=== PATIENT | male | born 1945 | race Caucasian/White ===

== ENCOUNTER 2018-01-20 19:00 | Inpatient (IN) ==
--- NOTE | 2018-01-20 19:38 | ED ---
HPI General Chief complaint: Weakness Stated complaint: poss sepsis Time Seen by Provider: 01/20/18 19:29 History of Present Illness HPI narrative: 72-year-old male with a history of hypertension, hyperlipidemia, atrial fibrillation anticoagulated on Coumadin is brought to the emergency department by EMS for evaluation of weakness and UTI. The patient states that he was diagnosed with a urinary tract infection 5 days ago and has been on Bactrim as prescribed by his physician. States that his symptoms have worsened. He complains of burning with urination, painful urination, suprapubic pain. States that today he started having nausea with dry heaves and generalized weakness and lightheadedness. Denies any fever, chills, vomiting, diarrhea, constipation, black stool, bloody stool, chest pain, shortness of breath, cough or cold symptoms. PCP Dr. Ruiz. Related Data Home Medications Medication Instructions Recorded Confirmed aspirin 81 mg PO DAILY 01/20/18 01/20/18 carvedilol See Label Instructions .ROUTE 01/20/18 01/20/18 .COMPLEX digoxin See Label Instructions .ROUTE 01/20/18 01/20/18 .COMPLEX dronedarone See Label Instructions .ROUTE 01/20/18 01/20/18 .COMPLEX furosemide See Label Instructions .ROUTE 01/20/18 01/20/18 .COMPLEX lisinopril See Label Instructions .ROUTE 01/20/18 01/20/18 .COMPLEX simvastatin See Label Instructions .ROUTE 01/20/18 01/20/18 .COMPLEX sulfamethoxazole-trimethoprim See Label Instructions .ROUTE 01/20/18 01/20/18 [Bactrim] .COMPLEX warfarin See Label Instructions .ROUTE 01/20/18 01/20/18 .COMPLEX Allergies Allergy/AdvReac Type Severity Reaction Status Date / Time No Known Allergies Allergy Unverified 01/20/18 19:19 Review of Systems ROS: all other systems reviewed are negative [facility] Medical History Medical History Atrial fibrillation (Acute) Hypertension (Acute) Surgical History Surgical History H/O aortic valve replacement (Acute) H/O hernia repair (Acute) H/O mitral valve replacement (Acute) Social History Social History Smoking Status: Never smoker How Often Do You Have a Drink Containing Alcohol: Never Recent Travel in [facility] [[email or web address]] within the Last 8 Weeks: No Recent Out of Country Travel within the Last 8 Weeks: No Immunization History Tetanus Immunization: Unsure Hx Influenza Vaccine This Season: No Exam Narrative Exam Narrative: GENERAL: Well-nourished and well-developed pleasant patient in no acute distress who is nontoxic appearing. SKIN: Warm and dry. HEAD: Normocephalic and atraumatic. EYES: No injection, drainage, or hyphema noted. PERRLA. EOMI. ENT: No nasal drainage noted. Oropharynx is clear. NECK: Supple and the trachea is midline. CARDIOVASCULAR: Regular rate and rhythm. RESPIRATORY: Breath sounds are equal bilaterally with no accessory muscle use, wheezing, rhonchi, or crackles. GASTROINTESTINAL: Mild suprapubic tenderness to palpation. No rebound tenderness or guarding. Abdomen is soft and nondistended. MUSCULOSKELETAL: No obvious deformities, swelling, cyanosis, or ecchymosis is present throughout the upper and lower extremities. Patient has full range of motion without any signs of neurovascular compromise. Distal pulses are 2+ throughout. NEUROLOGICAL: Awake, alert, and oriented. Normal speech and gait. Cranial nerves are grossly intact. Course Initial Documented Vital Signs Temperature 99.6 F 01/20/18 19:14 Pulse Rate 70 01/20/18 19:14 Respiratory Rate 16 01/20/18 19:14 Blood Pressure 146/70 H 01/20/18 19:14 Pulse Oximetry 97 01/20/18 19:14 Last Documented Vital Signs Temperature 99.6 F 01/20/18 19:14 Pulse Rate 60 01/20/18 23:14 Respiratory Rate 16 01/20/18 23:14 Blood Pressure 147/72 H 01/20/18 23:14 Pulse Oximetry 95 01/20/18 23:14 Medical Decision Making ARVIN Attestation ARVIN supervised visit: Yes Attestation: discussed plan and dispo with KRISTIN Lora admsandro [facility] Narrative Medical decision making narrative: 72-year-old male is brought to the emergency department by EMS for evaluation of weakness and UTI. Patient is afebrile, vital signs are stable. Physical examination reveals suprapubic tenderness to palpation, otherwise unremarkable. IV access is obtained, labs been drawn and sent. Patient is placed on cardiac telemetry and pulse oximetry monitoring. Patient is administered 500 cc IV bolus of fluids and Rocephin 1 g IV. Workup reveals elevated white blood cell count and urinary tract infection. Patient has failed outpatient therapy for treatment of UTI therefore will be admitted for IV antibiotics. I spoke with Dr. Rodriguez who agrees to accept the patient to her service. Medical Screen Exam Complete: Yes Emergency Medical Condition: Yes Differential Diagnosis Differential Diagnosis: Sepsis versus UTI versus dehydration versus electrolyte abnormality Lab Data Result diagrams: 01/20/18 19:50 01/20/18 19:50 Lab Results 01/20/18 01/20/18 01/20/18 Range/Units 19:50 19:50 19:50 WBC 15.3 H (4.0-11.0) th/mm3 RBC 4.23 L (4.50-5.90) mil/mm3 Hgb 13.5 (13.0-17.0) gm/dL Hct 39.0 (39.0-51.0) % MCV 92.2 (80.0-100.0) fL MCH 31.8 (27.0-34.0) pg MCHC 34.5 (32.0-36.0) % RDW 13.5 (11.6-17.2) % Plt Count 206 (150-450) th/mm3 MPV 9.6 (7.0-11.0) fL Neut % (Auto) 79.3 H (16.0-70.0) % Lymph % (Auto) 11.3 (9.0-44.0) % Nobles % (Auto) 7.3 (0.0-8.0) % Eos % (Auto) 1.5 (0.0-4.0) % Baso % (Auto) 0.6 (0.0-2.0) % Neut # (Auto) 12.1 H (1.8-7.7) th/mm3 Lymph # (Auto) 1.7 (1.0-4.8) th/mm3 Nobles # (Auto) 1.1 H (0.0-0.9) th/mm3 Eos # (Auto) 0.2 (0.0-0.4) th/mm3 Baso # (Auto) 0.1 (0.0-0.2) th/mm3 WBC Differential . Differential Comment Auto diff final PT (9.8-11.6) sec INR Ratio Sodium 133 L (136-145) meq/L Potassium 3.8 (3.5-5.1) meq/L Chloride 97 L (98-107) meq/L Carbon Dioxide 23.9 (21.0-32.0) meq/L Anion Gap 12 (5-15) meq/L BUN 10 (7-18) mg/dL Creatinine 0.93 (0.60-1.30) mg/dL Estimated GFR 79 L (>89) mL/min Random Glucose 145 H (74-106) mg/dL Lactic Acid 1.4 (0.4-2.0) mmol/L Calcium 9.0 (8.5-10.1) mg/dL Total Bilirubin 0.9 (0.2-1.0) mg/dL AST 50 H (15-37) U/L ALT 61 (12-78) U/L Alkaline Phosphatase 88 (45-117) U/L Troponin I 0.04 (0.02-0.05) ng/mL Total Protein 7.5 (6.4-8.2) g/dL Albumin 3.7 (3.4-5.0) g/dL Lipase 167 (73-393) U/L Urine Color (Yellw/Straw) Urine Clarity (Clear) Urine pH (5.0-8.5) Ur Specific [place] (1.002-1.035) Urine Protein (Neg-Trace) mg/dL Urine Glucose (UA) (Negative) mg/dL Urine Ketones (Negative) mg/dL Urine Occult Blood (Negative) Urine Nitrate (Negative) Urine Bilirubin (Negative) Urine Urobilinogen (Less than 2) mg/dL Ur Leukocyte Esterase (Negative) Urine RBC (0-3) /hpf Urine WBC (0-5) /hpf Urine Bacteria (None) /hpf Urine Mucus (Occasional) /lpf Micro UA Comment Ur Microscopic Review Urine Culture Comments 01/20/18 01/20/18 Range/Units 19:50 21:45 WBC (4.0-11.0) th/mm3 RBC (4.50-5.90) mil/mm3 Hgb (13.0-17.0) gm/dL Hct (39.0-51.0) % MCV (80.0-100.0) fL MCH (27.0-34.0) pg MCHC (32.0-36.0) % RDW (11.6-17.2) % Plt Count (150-450) th/mm3 MPV (7.0-11.0) fL Neut % (Auto) (16.0-70.0) % Lymph % (Auto) (9.0-44.0) % Nobles % (Auto) (0.0-8.0) % Eos % (Auto) (0.0-4.0) % Baso % (Auto) (0.0-2.0) % Neut # (Auto) (1.8-7.7) th/mm3 Lymph # (Auto) (1.0-4.8) th/mm3 [place]les # (Auto) (0.0-0.9) th/mm3 Eos # (Auto) (0.0-0.4) th/mm3 Baso # (Auto) (0.0-0.2) th/mm3 WBC Differential Differential Comment PT 16.5 H (9.8-11.6) sec INR 1.6 Ratio Sodium (136-145) meq/L Potassium (3.5-5.1) meq/L Chloride (98-107) meq/L Carbon Dioxide (21.0-32.0) meq/L Anion Gap (5-15) meq/L BUN (7-18) mg/dL Creatinine (0.60-1.30) mg/dL Estimated GFR (>89) mL/min Random Glucose (74-106) mg/dL Lactic Acid (0.4-2.0) mmol/L Calcium (8.5-10.1) mg/dL Total Bilirubin (0.2-1.0) mg/dL AST (15-37) U/L ALT (12-78) U/L Alkaline Phosphatase (45-117) U/L Troponin I (0.02-0.05) ng/mL Total Protein (6.4-8.2) g/dL Albumin (3.4-5.0) g/dL Lipase (73-393) U/L Urine Color Yellow (Yellw/Straw) Urine Clarity Hazy H (Clear) Urine pH 7.0 (5.0-8.5) Ur Specific [place] 1.012 (1.002-1.035) Urine Protein Negative (Neg-Trace) mg/dL Urine Glucose (UA) Negative (Negative) mg/dL Urine Ketones Negative (Negative) mg/dL Urine Occult Blood Negative (Negative) Urine Nitrate Negative (Negative) Urine Bilirubin Negative (Negative) Urine Urobilinogen Less than 2 (Less than 2) mg/dL Ur Leukocyte Esterase Large H (Negative) Urine RBC 2 (0-3) /hpf Urine WBC 62 H (0-5) /hpf Urine Bacteria Rare H (None) /hpf Urine Mucus Few H (Occasional) /lpf Micro UA Comment Culture indicated Ur Microscopic Review Not Reportable Urine Culture Comments Culture indicated Imaging Data Radiologist's impression: Chest X-Ray 01/20/18 19:34 CONCLUSION: Cardiomegaly without radiographic evidence of congestive failure. No infiltrates seen. Discharge Plan Discharge Disposition Patient Disposition: 30 Still Patient Discharge Condition Condition: Stable Discharge Details Diagnosis: Acute UTI, Failure of outpatient treatment Physicians Team ED Provider: Jake Franco ED Midlevel Provider: Maddie Salinas Primary Care Provider: Merry Jensen Attending Provider: Gela Chen Status ED Status: Admitted Patient
--- NOTE | 2018-01-20 19:52 | XR ---
EXAM DATE: 01/20/2018 7:34 PM EDT AGE/SEX: 72 years / Male INDICATIONS: Fever with dizziness. CLINICAL DATA: This is the patient's initial encounter. Patient reports that signs and symptoms have been present for 2 days and indicates a pain score of 0/10. MEDICAL/SURGICAL HISTORY: Hypertension. . Valve replacement. COMPARISON: No prior exams available for comparison. FINDINGS: The lungs are symmetrically aerated and clear. The central bronchopulmonary markings are well delinea ana. There is moderate cardiomegaly and evidence of prior median sternotomy and aortic and mitral morena ve replacements. Both hemidiaphragms are well delineated and there is no evidence of pleural effusion . CONCLUSION: Cardiomegaly without radiographic evidence of congestive failure. No infiltrates seen. Electronically signed by: Johnathon Montez MD 01/20/2018 7:50 PM EDT
[2018-01-20] MEDS ORDERED: Sodium Chlor 0.9% Inj 500 ML IV.SIG SCH ×2 (20:00→22:00)
[2018-01-20 20:09] LABS: Baso # (Auto) 0.1 th/mm3 (0.0-0.2); Baso % (Auto) 0.6 % (0.0-2.0); Eos # (Auto) 0.2 th/mm3 (0.0-0.4); Eos % (Auto) 1.5 % (0.0-4.0); Hemoglobin 13.5 gm/dL (13.0-17.0); Lymph # (Auto) 1.7 th/mm3 (1.0-4.8); Lymph % (Auto) 11.3 % (9.0-44.0); Mean Corpuscular HGB Conc 34.5 % (32.0-36.0); Mean Corpuscular Hemoglobin 31.8 pg (27.0-34.0); Mean Corpuscular Volume 92.2 fL (80.0-100.0); Mean Platelet Volume 9.6 fL (7.0-11.0); Mono # (Auto) 1.1 th/mm3 (0.0-0.9); Mono % (Auto) 7.3 % (0.0-8.0); Neut # (Auto) 12.1 th/mm3 (1.8-7.7); Neut % (Auto) 79.3 % (16.0-70.0); Platelet Count 206 th/mm3 (150-450); Red Blood Count 4.23 mil/mm3 (4.50-5.90); Red Cell Distribution Width 13.5 % (11.6-17.2); White Blood Count 15.3 th/mm3 (4.0-11.0)
[2018-01-20 20:19] LABS: INR 1.6 Ratio; Prothrombin Time 16.5 sec (9.8-11.6)
[2018-01-20 20:25] LABS: Albumin 3.7 g/dL (3.4-5.0); Anion Gap 12 meq/L (5-15); Aspartate Aminotransferase 50 U/L (15-37); Blood Urea Nitrogen 10 mg/dL (7-18); Carbon Dioxide 23.9 meq/L (21.0-32.0); Chloride 97 meq/L (98-107); Glomerular Filtration Rate 79 mL/min (>89); Glucose,Random 145 mg/dL (74-106); Lipase 167 U/L (73-393); Potassium 3.8 meq/L (3.5-5.1); Sodium 133 meq/L (136-145)
[2018-01-20 20:31] LABS: Alanine Aminotransferase 61 U/L (12-78); Alkaline Phosphatase 88 U/L (45-117); Total Protein 7.5 g/dL (6.4-8.2); Troponin I 0.04 ng/mL (0.02-0.05)
--- NOTE | 2018-01-20 21:27 | ECG ---
Date Performed: 01/20/2018 Time Performed: 19:46:44 PTAGE: 72 years EKG: ATRIAL FIBRILLATION NONSPECIFIC ST & T-WAVE ABNORMALITY ABNORMAL RHYTHM ECG NO PREVIOUS TRACING DOCTOR: Woodrow Gupta Interpretating Date/Time 01/20/2018 21:27:05
[2018-01-20 22:05] LABS: Bacteria,Urine Rare /hpf; Bilirubin,Urine Negative (Negative); Clarity,Urine Hazy (Clear); Color,Urine Yellow (Yellw/Straw); Glucose,Urine (UA) Negative (Negative); Leukocyte Esterase,Urine Large (Negative); Mucus,Urine Few /lpf (Occasional); Nitrite,Urine Negative (Negative); Specific Gravity,Urine 1.012 (1.002-1.035)
[2018-01-20] MEDS ORDERED: Acetaminophen 325 MG Tablet PO PRN (23:40)
[2018-01-20] MEDS ORDERED: Bisacodyl 10 MG Supp RECTAL PRN (23:40)
--- NOTE | 2018-01-20 23:41 | P.HPIM ---
History of Present Illness Primary Care Physician: Merry Jensen Inpatient Certification: I certify that the inpatient services were ordered in accordance with Medicare regulations governing the order. This includes certification that hospital inpatient services are reasonable and necessary and in the case of services not specified as inpatient-only under 42 CFR 419.22(n), that they are appropriately provided as inpatient services in accordance to with the 2-midnight benchmark under 43 CFR 412.3(e) Estimated Total Length of Stay (Days): 2 Plans for Post Hospital Care: Not yet determined PMFSH - History History Provided By: Patient - Medical History Medical History: Medical History (Last Updated 01/20/18 @ 19:22 by Nadine Mccann) Atrial fibrillation Hypertension - Surgical History Surgical History: Surgical History (Last Updated 01/20/18 @ 19:22 by Nadine Mccann) H/O aortic valve replacement H/O hernia repair H/O mitral valve replacement - Tobacco History Smoking Status: Never smoker - Alcohol History How Often Do You Have a Drink Containing Alcohol: Never - Travel History Recent Travel in the [place] Within the Last 8 Weeks: No Recent Travel Out of the Country Within the Last 8 Weeks: No - Immunization History Tetanus Immunization: Unsure Hx Influenza Vaccine This Season: No Medications and Allergies Active Medications: Active Medications Sodium Chloride (Ns Inj) 500 mls @ 0 mls/hr IV.SIG BOLUS BECCA Last Infusion: 01/20/18 20:55 Dose: Infused Sodium Chloride (Ns Inj) 500 mls @ 0 mls/hr IV.SIG BOLUS BECCA Last Infusion: 01/20/18 22:17 Dose: Infused Allergies Allergy/AdvReac Type Severity Reaction Status Date / Time No Known Allergies Allergy Unverified 01/20/18 19:19 Home Medications Medication Instructions Recorded Confirmed Type aspirin 81 mg PO DAILY 01/20/18 01/20/18 History carvedilol See Label Instructions .ROUTE 01/20/18 01/20/18 History .COMPLEX digoxin See Label Instructions .ROUTE 01/20/18 01/20/18 History .COMPLEX dronedarone See Label Instructions .ROUTE 01/20/18 01/20/18 History .COMPLEX furosemide See Label Instructions .ROUTE 01/20/18 01/20/18 History .COMPLEX lisinopril See Label Instructions .ROUTE 01/20/18 01/20/18 History .COMPLEX simvastatin See Label Instructions .ROUTE 01/20/18 01/20/18 History .COMPLEX sulfamethoxazole-trimethoprim See Label Instructions .ROUTE 01/20/18 01/20/18 History [Bactrim] .COMPLEX warfarin See Label Instructions .ROUTE 01/20/18 01/20/18 History .COMPLEX Exam Vital signs: Vital Signs 01/20/18 19:14 01/20/18 19:15 01/20/18 23:14 Temperature 99.6 F Pulse Rate 70 60 Respiratory Rate 16 16 Blood Pressure 146/70 H 147/72 H Pulse Oximetry 97 96 95 Intake & Output 01/20/18 01/20/18 01/21/18 06:59 18:59 06:59 Intake Total 1100 / 1100 Balance 1100 / 1100 Weight 89.358 kg Intake: IV 1100 / 1100 NS Inj 500 ML @ Wide Open IV. 1000 / 1000 SIG BOLUS BECCA Rx#:[id number] Rocephin Inj 1,000 MG In NS Inj 100 / 100 100 ML @ 200 mls/hr IV.SIG ONCE ONE Rx#:[id number] Results - Labs CBC & Chem 7: 01/20/18 19:50 01/20/18 19:50 Labs: Short CBC 01/20/18 Range/Units 19:50 WBC 15.3 H (4.0-11.0) th/mm3 Hgb 13.5 (13.0-17.0) gm/dL Hct 39.0 (39.0-51.0) % Plt Count 206 (150-450) th/mm3 BMP 01/20/18 19:50 Sodium 133 L Potassium 3.8 Chloride 97 L Carbon Dioxide 23.9 BUN 10 Creatinine 0.93 Calcium 9.0 Cardiac Enzymes 01/20/18 Range/Units 19:50 Troponin I 0.04 (0.02-0.05) ng/mL Liver Function 01/20/18 Range/Units 19:50 Total Bilirubin 0.9 (0.2-1.0) mg/dL AST 50 H (15-37) U/L ALT 61 (12-78) U/L Alkaline Phosphatase 88 (45-117) U/L Albumin 3.7 (3.4-5.0) g/dL Urine 01/20/18 Range/Units 21:45 Urine Color Yellow (Yellw/Straw) Urine Clarity Hazy H (Clear) Urine pH 7.0 (5.0-8.5) Ur Specific [place] 1.012 (1.002-1.035) Urine Protein Negative (Neg-Trace) mg/dL Urine Glucose (UA) Negative (Negative) mg/dL - Imaging Impressions Chest X-Ray 01/20/18 19:34 CONCLUSION: Cardiomegaly without radiographic evidence of congestive failure. No infiltrates seen. Caprini VTE Risk Assessment Caprini Risk Assessment Model: Point Value = 1 Point Value = 2 Point Value = 3 Point Value = 5 Age 41-60 Minor surgery BMI > 25 kg/m2 Swollen legs Varicose veins or History of unexplained or recurrent spontaneous Oral contraceptives or hormone replacement Sepsis (< 1 month) Serious lung disease, including pneumonia (< 1 month) Abnormal pulmonary function Acute myocardial infarction Congestive heart failure (< 1 month) History of inflammatory bowel disease Medical patient at bed rest Age 61-74 Arthroscopic surgery Major open surgery (> 45 min) Laparoscopic surgery (> 45 min) Malignancy Confined to bed (> 72 hours) Immobilizing plaster cast Central venous access Age >= 75 History of VTE Family history of VTE Factor V Leiden Prothrombin [id number] Lupus anticoagulant Anticardiolipin antibodies Elevated serum homocysteine Heparin-induced thrombocytopenia Other congenital or acquired thrombophilia Stroke (< 1 month) Elective arthroplasty Hip, pelvis, or leg fracture Acute spinal cord injury (< 1 month) Prophylaxis Regimen: Total Risk Factor Score Risk Level Prophylaxis Regimen 0-1 Low Early ambulation 2 Moderate Order ONE of the following: *Sequential Compression Device (SCD) *Heparin 5000 units SQ BID 3-4 Higher Order ONE of the following medications: *Heparin 5000 units SQ TID *Enoxaparin/Lovenox 40 mg SQ daily (WT < 150 kg, CrCl > 30 mL/min) *Enoxaparin/Lovenox 30 mg SQ daily (WT < 150 kg, CrCl > 10-29 mL/min) *Enoxaparin/Lovenox 30 mg SQ BID (WT < 150 kg, CrCl > 30 mL/min) AND/OR *Sequential Compression Device (SCD) 5 or more Highest Order ONE of the following medications: *Heparin 5000 units SQ TID (Preferred with Epidurals) *Enoxaparin/Lovenox 40 mg SQ daily (WT < 150 kg, CrCl > 30 mL/min) *Enoxaparin/Lovenox 30 mg SQ daily (WT < 150 kg, CrCl > 10-29 mL/min) *Enoxaparin/Lovenox 30 mg SQ BID (WT < 150 kg, CrCl > 30 mL/min) AND *Sequential Compression Device (SCD)
[2018-01-21] MEDS: Sod Chloride 0.9% Inj 1,000 ML IV.CONT SCH ×3 (00:08→19:58)
--- NOTE | 2018-01-21 01:39 | P.HPIM ---
History of Present Illness Primary Care Physician: Merry Jensen History of Present Illness: 72-year-old male with a history of hypertension, hyperlipidemia, atrial fibrillation anticoagulated on Coumadin is brought to the emergency department by EMS for evaluation of weakness and UTI. The patient states that he was diagnosed with a urinary tract infection 5 days ago and was Bactrim as prescribed. States that his symptoms have worsened. He complains of burning with urination, painful urination, suprapubic pain and frequency. He states today he just felt week, denies any fever or chills. Patient is a poor historian when it comes to medications and dosages that he takes. Patient was called and she will bring in pill bottles in AM. Inpatient Certification: I certify that the inpatient services were ordered in accordance with Medicare regulations governing the order. This includes certification that hospital inpatient services are reasonable and necessary and in the case of services not specified as inpatient-only under 42 CFR 419.22(n), that they are appropriately provided as inpatient services in accordance to with the 2-midnight benchmark under 43 CFR 412.3(e) Estimated Total Length of Stay (Days): 2 Plans for Post Hospital Care: Not yet determined Review of Systems All other systems reviewed negative except as stated [facility] - History History Provided By: Patient - Medical History Medical History: Medical History (Last Updated 01/21/18 @ 02:40 by DENICE Medley) Atrial fibrillation HLD (hyperlipidemia) Hypertension - Surgical History Surgical History: Surgical History (Last Updated 01/20/18 @ 19:22 by Nadine Mccann) H/O aortic valve replacement H/O hernia repair H/O mitral valve replacement - Tobacco History Smoking Status: Never smoker - Alcohol History How Often Do You Have a Drink Containing Alcohol: Never - Travel History Recent Travel in the [place] Within the Last 8 Weeks: No Recent Travel Out of the Country Within the Last 8 Weeks: No - Immunization History Tetanus Immunization: Unsure Hx Influenza Vaccine This Season: No Medications and Allergies Active Medications: Active Medications Acetaminophen (Tylenol) 650 mg PO Q4H PRN PRN Reason: Temp > 100.4 Al Hydroxide/Mg Hydroxide (Milk Of Magnesia Liq) 30 ml PO Q12H PRN PRN Reason: Mild Constipation Bisacodyl (Dulcolax Supp) 10 mg RECTAL DAILY PRN PRN Reason: SEVERE CONSITIPATION Enalaprilat (Vasotec Inj) 1.25 mg IV.PUSH Q6H PRN PRN Reason: SBP> OR = 180, DBP> OR = 100 Sodium Chloride (Ns Inj) 500 mls @ 0 mls/hr IV.SIG BOLUS BECCA Last Infusion: 01/20/18 20:55 Dose: Infused Sodium Chloride (Ns Inj) 500 mls @ 0 mls/hr IV.SIG BOLUS BECCA Last Infusion: 01/20/18 22:17 Dose: Infused Ceftriaxone Sodium 1,000 mg/ (Sodium Chloride) 100 mls @ 200 mls/hr IV.SIG Q24H BECCA Sodium Chloride (Ns Inj) 1,000 mls @ 100 mls/hr IV.CONT .Q10H BECCA Last Admin: 01/21/18 00:08 Dose: 100 mls/hr Lactulose (Lactulose Liq) 30 ml PO DAILY PRN PRN Reason: SEVERE CONSITIPATION Ondansetron HCl (Zofran Inj) 4 mg IV.PUSH Q6H PRN PRN Reason: NAUSEA OR VOMITING Senna/Docusate Sodium (Alondra-Colace) 1 tab PO BID BECCA Sennosides (Senokot) 17.2 mg PO Q12H PRN PRN Reason: Moderate Constipation Allergies Allergy/AdvReac Type Severity Reaction Status Date / Time No Known Allergies Allergy Unverified 01/20/18 19:19 Home Medications Medication Instructions Recorded Confirmed Type aspirin 81 mg PO DAILY 01/20/18 01/20/18 History carvedilol See Label Instructions .ROUTE 01/20/18 01/20/18 History .COMPLEX digoxin See Label Instructions .ROUTE 01/20/18 01/20/18 History .COMPLEX dronedarone See Label Instructions .ROUTE 01/20/18 01/20/18 History .COMPLEX furosemide See Label Instructions .ROUTE 01/20/18 01/20/18 History .COMPLEX lisinopril See Label Instructions .ROUTE 01/20/18 01/20/18 History .COMPLEX simvastatin See Label Instructions .ROUTE 01/20/18 01/20/18 History .COMPLEX sulfamethoxazole-trimethoprim See Label Instructions .ROUTE 01/20/18 01/20/18 History [Bactrim] .COMPLEX warfarin See Label Instructions .ROUTE 01/20/18 01/20/18 History .COMPLEX Multi Vitamin 01/21/18 History dronedarone 400 mg PO BID 01/21/18 01/21/18 History furosemide 20 mg PO DAILY 01/21/18 01/21/18 History hydrocodone-acetaminophen 2 tab PO Q8H PRN 01/21/18 01/21/18 History lisinopril 5 mg PO DAILY 01/21/18 01/21/18 History lisinopril 40 mg PO DAILY 01/21/18 01/21/18 History oxymetazoline [Afrin 2 spray INTRANASAL Q12H 01/21/18 01/21/18 History (oxymetazoline)] warfarin 7.5 mg PO DAILY 01/21/18 01/21/18 History Exam Vital signs: Vital Signs 01/20/18 19:14 01/20/18 19:15 01/20/18 23:14 Temperature 99.6 F Pulse Rate 70 60 Respiratory Rate 16 16 Blood Pressure 146/70 H 147/72 H Pulse Oximetry 97 96 95 01/21/18 00:00 Temperature 97.7 F Pulse Rate 65 Respiratory Rate 17 Blood Pressure 182/89 H Pulse Oximetry 95 Intake & Output 01/20/18 01/20/18 01/21/18 06:59 18:59 06:59 Intake Total 1100 / 1100 Balance 1100 / 1100 Weight 89.358 kg Intake: IV 1100 / 1100 NS Inj 500 ML @ Wide Open IV. 1000 / 1000 SIG BOLUS BECCA Rx#:[id number] Rocephin Inj 1,000 MG In NS Inj 100 / 100 100 ML @ 200 mls/hr IV.SIG ONCE ONE Rx#:[id number] Narrative: GENERAL: This is a well-nourished, well-developed patient, in no apparent distress. SKIN: Warm, dry, intact, no ecchymosis or open lesions EYES: Pupils equal round and reactive, no scleral edema or drainage CARDIOVASCULAR: Regular rate and rhythm without murmurs, gallops, or rubs. RESPIRATORY: Clear to auscultation. Breath sounds equal bilaterally. No wheezes , rales, or rhonchi. GASTROINTESTINAL: Abdomen soft, non-tender, nondistended. Normal active bowel sounds MUSCULOSKELETAL: Extremities without clubbing, cyanosis, or edema. NEURO: Alert & Oriented x4 to person, place, time, situation. Moves all ext x4 Results - Labs CBC & Chem 7: 01/20/18 19:50 01/20/18 19:50 Labs: Short CBC 01/20/18 Range/Units 19:50 WBC 15.3 H (4.0-11.0) th/mm3 Hgb 13.5 (13.0-17.0) gm/dL Hct 39.0 (39.0-51.0) % Plt Count 206 (150-450) th/mm3 BMP 01/20/18 19:50 Sodium 133 L Potassium 3.8 Chloride 97 L Carbon Dioxide 23.9 BUN 10 Creatinine 0.93 Calcium 9.0 Cardiac Enzymes 01/20/18 Range/Units 19:50 Troponin I 0.04 (0.02-0.05) ng/mL Liver Function 01/20/18 Range/Units 19:50 Total Bilirubin 0.9 (0.2-1.0) mg/dL AST 50 H (15-37) U/L ALT 61 (12-78) U/L Alkaline Phosphatase 88 (45-117) U/L Albumin 3.7 (3.4-5.0) g/dL Urine 01/20/18 Range/Units 21:45 Urine Color Yellow (Yellw/Straw) Urine Clarity Hazy H (Clear) Urine pH 7.0 (5.0-8.5) Ur Specific [place] 1.012 (1.002-1.035) Urine Protein Negative (Neg-Trace) mg/dL Urine Glucose (UA) Negative (Negative) mg/dL - Imaging Impressions Chest X-Ray 01/20/18 19:34 CONCLUSION: Cardiomegaly without radiographic evidence of congestive failure. No infiltrates seen. Caprini VTE Risk Assessment Caprini VTE Risk Assessment: Moderate/High Risk (score >= 2) Caprini Risk Assessment Model: Point Value = 1 Point Value = 2 Point Value = 3 Point Value = 5 Age 41-60 Minor surgery BMI > 25 kg/m2 Swollen legs Varicose veins or History of unexplained or recurrent spontaneous Oral contraceptives or hormone replacement Sepsis (< 1 month) Serious lung disease, including pneumonia (< 1 month) Abnormal pulmonary function Acute myocardial infarction Congestive heart failure (< 1 month) History of inflammatory bowel disease Medical patient at bed rest Age 61-74 Arthroscopic surgery Major open surgery (> 45 min) Laparoscopic surgery (> 45 min) Malignancy Confined to bed (> 72 hours) Immobilizing plaster cast Central venous access Age >= 75 History of VTE Family history of VTE Factor V Leiden Prothrombin [id number] Lupus anticoagulant Anticardiolipin antibodies Elevated serum homocysteine Heparin-induced thrombocytopenia Other congenital or acquired thrombophilia Stroke (< 1 month) Elective arthroplasty Hip, pelvis, or leg fracture Acute spinal cord injury (< 1 month) Prophylaxis Regimen: Total Risk Factor Score Risk Level Prophylaxis Regimen 0-1 Low Early ambulation 2 Moderate Order ONE of the following: *Sequential Compression Device (SCD) *Heparin 5000 units SQ BID 3-4 Higher Order ONE of the following medications: *Heparin 5000 units SQ TID *Enoxaparin/Lovenox 40 mg SQ daily (WT < 150 kg, CrCl > 30 mL/min) *Enoxaparin/Lovenox 30 mg SQ daily (WT < 150 kg, CrCl > 10-29 mL/min) *Enoxaparin/Lovenox 30 mg SQ BID (WT < 150 kg, CrCl > 30 mL/min) AND/OR *Sequential Compression Device (SCD) 5 or more Highest Order ONE of the following medications: *Heparin 5000 units SQ TID (Preferred with Epidurals) *Enoxaparin/Lovenox 40 mg SQ daily (WT < 150 kg, CrCl > 30 mL/min) *Enoxaparin/Lovenox 30 mg SQ daily (WT < 150 kg, CrCl > 10-29 mL/min) *Enoxaparin/Lovenox 30 mg SQ BID (WT < 150 kg, CrCl > 30 mL/min) AND *Sequential Compression Device (SCD) Assessment and Plan - Plan 72-year-old male with a history of hypertension, hyperlipidemia, atrial fibrillation anticoagulated on Coumadin is brought to the emergency department by EMS for evaluation of weakness and UTI. SIRS, UTI, failed outpatient WBC 15.3 Urine shows large leukocyte esterase, increased WBC and rare bacteria -Urine culture pending -Rocephin IV Weakness, likely related to UTI -PT eval and treat Hypertension, chronic currently on stable -Resume home medications -Vasotec IV as needed -Monitor vitals A. fib, chronic -Monitor telemetry -Resume home medications -Continue home anticoagulation Coumadin DVT prophylaxis Coumadin Discussed Condition With: Patient and RN
[2018-01-21 06:13] LABS: INR 1.5 Ratio; Prothrombin Time 15.6 sec (9.8-11.6)
[2018-01-21 06:18] LABS: Baso # (Auto) 0.1 th/mm3 (0.0-0.2); Baso % (Auto) 0.6 % (0.0-2.0); Eos # (Auto) 0.3 th/mm3 (0.0-0.4); Eos % (Auto) 2.7 % (0.0-4.0); Hemoglobin 12.7 gm/dL (13.0-17.0); Lymph # (Auto) 2.2 th/mm3 (1.0-4.8); Lymph % (Auto) 20.4 % (9.0-44.0); Mean Corpuscular HGB Conc 34.4 % (32.0-36.0); Mean Corpuscular Hemoglobin 31.7 pg (27.0-34.0); Mean Corpuscular Volume 92.1 fL (80.0-100.0); Mean Platelet Volume 9.3 fL (7.0-11.0); Mono # (Auto) 0.9 th/mm3 (0.0-0.9); Mono % (Auto) 7.9 % (0.0-8.0); Neut # (Auto) 7.4 th/mm3 (1.8-7.7); Neut % (Auto) 68.4 % (16.0-70.0); Platelet Count 187 th/mm3 (150-450); Red Blood Count 4.01 mil/mm3 (4.50-5.90); Red Cell Distribution Width 13.4 % (11.6-17.2); White Blood Count 10.9 th/mm3 (4.0-11.0)
[2018-01-21 06:34] LABS: Alanine Aminotransferase 51 U/L (12-78); Albumin 3.3 g/dL (3.4-5.0); Anion Gap 10 meq/L (5-15); Aspartate Aminotransferase 42 U/L (15-37); Blood Urea Nitrogen 10 mg/dL (7-18); Carbon Dioxide 24.9 meq/L (21.0-32.0); Chloride 103 meq/L (98-107); Glomerular Filtration Rate Greater Than 89 mL/min (>89); Glucose,Random 112 mg/dL (74-106); Potassium 3.6 meq/L (3.5-5.1); Sodium 138 meq/L (136-145)
[2018-01-21 06:37] LABS: Alkaline Phosphatase 81 U/L (45-117)
--- NOTE | 2018-01-21 09:02 | P.PN ---
Subjective Interval history: This is a pleasant 72 y/o Male with Hypertension, Hyperlipidemia, Atrial Fibrillation, anticoagulated with Coumadin, who was brought in to Emergency room due to Weakness and UTI, He was diagnosed with UTI five days before coming to ER, started on Bactrim, He complains of burning with urination, painful urination, suprapubic pain and Increased Urinary frequency, seen in his bedroom improving condition, eating without difficulty, continue Home medicines, following blood culture and Urine culture okay to discharge tomorrow on by mouth antibiotics, no nausea vomit or diarrhea. Physical Exam Vital signs: Vital Signs 01/20/18 19:14 01/20/18 19:15 01/20/18 23:14 Temperature 99.6 F Pulse Rate 70 60 Respiratory Rate 16 16 Blood Pressure 146/70 H 147/72 H Pulse Oximetry 97 96 95 01/21/18 00:00 01/21/18 04:00 01/21/18 08:00 Temperature 97.7 F 98 F 98.0 F Pulse Rate 65 71 67 Respiratory Rate 17 16 17 Blood Pressure 182/89 H 155/73 H Pulse Oximetry 95 95 94 L Intake & Output 01/20/18 01/21/18 01/21/18 18:59 06:59 18:59 Intake Total 1100 / 1100 Balance 1100 / 1100 Weight 87.4 kg Intake: IV 1100 / 1100 NS Inj 500 ML @ Wide Open IV. 1000 / 1000 SIG BOLUS [facility] Rx#:[id number] Rocephin Inj 1,000 MG In NS Inj 100 / 100 100 ML @ 200 mls/hr IV.SIG ONCE ONE Rx#:[id number] Narrative: GENERAL: This is a well-nourished, well-developed patient, in no apparent distress. SKIN: Warm, dry, intact, no ecchymosis or open lesions EYES: Pupils equal round and reactive, no scleral edema or drainage CARDIOVASCULAR: Regular rate and rhythm without murmurs, gallops, or rubs. RESPIRATORY: Clear to auscultation. Breath sounds equal bilaterally. No wheezes , rales, or rhonchi. GASTROINTESTINAL: Abdomen soft, non-tender, nondistended. Normal active bowel sounds MUSCULOSKELETAL: Extremities without clubbing, cyanosis, or edema. NEURO: Alert & Oriented x4 to person, place, time, situation. Moves all ext x4 Results - Labs CBC & Chem 7: 01/21/18 04:45 01/21/18 04:45 Laboratory Results - last 24 hr 01/20/18 01/20/18 01/20/18 19:50 19:50 19:50 WBC 15.3 H RBC 4.23 L Hgb 13.5 Hct 39.0 MCV 92.2 MCH 31.8 MCHC 34.5 RDW 13.5 Plt Count 206 MPV 9.6 Neut % (Auto) 79.3 H Lymph % (Auto) 11.3 [place] % (Auto) 7.3 Eos % (Auto) 1.5 Baso % (Auto) 0.6 Neut # (Auto) 12.1 H Lymph # (Auto) 1.7 [place] # (Auto) 1.1 H Eos # (Auto) 0.2 Baso # (Auto) 0.1 WBC Differential . Differential Comment Auto diff final PT INR Sodium 133 L Potassium 3.8 Chloride 97 L Carbon Dioxide 23.9 Anion Gap 12 BUN 10 Creatinine 0.93 Estimated GFR 79 L Random Glucose 145 H Lactic Acid 1.4 Calcium 9.0 Total Bilirubin 0.9 AST 50 H ALT 61 Alkaline Phosphatase 88 Troponin I 0.04 Total Protein 7.5 Albumin 3.7 Lipase 167 Urine Color Urine Clarity Urine pH Ur Specific [place] Urine Protein Urine Glucose (UA) Urine Ketones Urine Occult Blood Urine Nitrate Urine Bilirubin Urine Urobilinogen Ur Leukocyte Esterase Urine RBC Urine WBC Urine Bacteria Urine Mucus Micro UA Comment Ur Microscopic Review Urine Culture Comments 01/20/18 01/20/18 01/21/18 19:50 21:45 04:45 WBC 10.9 RBC 4.01 L Hgb 12.7 L Hct 37.0 L MCV 92.1 MCH 31.7 MCHC 34.4 RDW 13.4 Plt Count 187 MPV 9.3 Neut % (Auto) 68.4 Lymph % (Auto) 20.4 [place] % (Auto) 7.9 Eos % (Auto) 2.7 Baso % (Auto) 0.6 Neut # (Auto) 7.4 Lymph # (Auto) 2.2 [place] # (Auto) 0.9 Eos # (Auto) 0.3 Baso # (Auto) 0.1 WBC Differential . Differential Comment Auto diff final PT 16.5 H INR 1.6 Sodium Potassium Chloride Carbon Dioxide Anion Gap BUN Creatinine Estimated GFR Random Glucose Lactic Acid Calcium Total Bilirubin AST ALT Alkaline Phosphatase Troponin I Total Protein Albumin Lipase Urine Color Yellow Urine Clarity Hazy H Urine pH 7.0 Ur Specific [place] 1.012 Urine Protein Negative Urine Glucose (UA) Negative Urine Ketones Negative Urine Occult Blood Negative Urine Nitrate Negative Urine Bilirubin Negative Urine Urobilinogen Less than 2 Ur Leukocyte Esterase Large H Urine RBC 2 Urine WBC 62 H Urine Bacteria Rare H Urine Mucus Few H Micro UA Comment Culture indicated Ur Microscopic Review Not Reportable Urine Culture Comments Culture indicated 01/21/18 01/21/18 04:45 04:45 WBC RBC Hgb Hct MCV MCH MCHC RDW Plt Count MPV Neut % (Auto) Lymph % (Auto) [place] % (Auto) Eos % (Auto) Baso % (Auto) Neut # (Auto) Lymph # (Auto) [place] # (Auto) Eos # (Auto) Baso # (Auto) WBC Differential Differential Comment PT 15.6 H INR 1.5 Sodium 138 Potassium 3.6 Chloride 103 Carbon Dioxide 24.9 Anion Gap 10 BUN 10 Creatinine 0.79 Estimated GFR Greater than 89 Random Glucose 112 H Lactic Acid Calcium 9.0 Total Bilirubin 0.7 AST 42 H ALT 51 Alkaline Phosphatase 81 Troponin I Total Protein 7.0 Albumin 3.3 L Lipase Urine Color Urine Clarity Urine pH Ur Specific [place] Urine Protein Urine Glucose (UA) Urine Ketones Urine Occult Blood Urine Nitrate Urine Bilirubin Urine Urobilinogen Ur Leukocyte Esterase Urine RBC Urine WBC Urine Bacteria Urine Mucus Micro UA Comment Ur Microscopic Review Urine Culture Comments - Imaging Impressions Chest X-Ray 01/20/18 19:34 CONCLUSION: Cardiomegaly without radiographic evidence of congestive failure. No infiltrates seen. - Procedures None Assessment and Plan - Plan 72-year-old male with a history of hypertension, hyperlipidemia, atrial fibrillation anticoagulated on Coumadin is brought to the emergency department by EMS for evaluation of weakness and UTI. SIRS, UTI, failed outpatient, continue present care, following blood culture and Urine culture, if no BSI go on by mouth antibiotics. WBC 15.3 improved to 10.9 today. Urine shows large leukocyte esterase, increased WBC and rare bacteria -Urine culture pending -Rocephin IV Weakness, likely related to UTI -PT eval and treat Hypertension, Uncontrolled re started Home medicines. CAD status post Aortic Valve replacement/Mitral Valve replacement on warfarin subtherapeutic INR. A. fib, chronic -continue Home Coumadin, re started Home medicines, Warfarin consult pharmacy. DVT prophylaxis Coumadin Code Status: Full code. Discussed Condition With: patient and Nurse Miss Evans. Discharge Planning: Expected by tomorrow.
[2018-01-21] MEDS ORDERED: Warfarin Consult Pharmacy OTHER PRN (09:03)
[2018-01-21] MEDS: Furosemide 20 MG Tablet PO SCH (09:41)
[2018-01-21] MEDS: Lisinopril 20 MG Tablet PO SCH (09:41)
[2018-01-21] MEDS: Senna/Docusate Sodium 8.6/50 MG Tablet PO SCH ×3 (09:41→20:03)
[2018-01-21] MEDS: Digoxin 125 MCG Tablet PO SCH (17:45)
[2018-01-21] MEDS: Enoxaparin Inj 100 MG/ML Syringe SQ SCH ×2 (19:57→20:03)
[2018-01-22] MEDS: Sod Chloride 0.9% Inj 1,000 ML IV.CONT SCH ×2 (05:42→16:56)
[2018-01-22 07:32] LABS: INR 1.6 Ratio; Prothrombin Time 16.1 sec (9.8-11.6)
[2018-01-22] MEDS: Lisinopril 20 MG Tablet PO SCH (09:28)
[2018-01-22] MEDS: Digoxin 125 MCG Tablet PO SCH (09:28)
[2018-01-22] MEDS: Senna/Docusate Sodium 8.6/50 MG Tablet PO SCH ×2 (09:28→21:14)
[2018-01-22] MEDS: Furosemide 20 MG Tablet PO SCH (09:29)
[2018-01-22] MEDS: Enoxaparin Inj 100 MG/ML Syringe SQ SCH ×2 (09:34→23:19)
--- NOTE | 2018-01-22 13:24 | P.PNIM ---
Subjective Interval history: Patient does not have any complaints today. Physical Exam Vital signs: Vital Signs 01/21/18 16:00 01/21/18 20:00 01/22/18 00:00 Temperature 97.6 F 97.7 F 97.7 F Pulse Rate 62 61 65 Respiratory Rate 17 18 18 Blood Pressure 148/68 H 152/73 H 168/79 H Pulse Oximetry 96 96 96 01/22/18 04:00 01/22/18 08:00 01/22/18 12:00 Temperature 98.2 F 97.8 F 97.8 F Pulse Rate 70 67 60 Respiratory Rate 17 18 18 Blood Pressure 175/81 H 167/80 H 151/67 H Pulse Oximetry 96 97 97 Intake & Output 01/21/18 01/22/18 01/22/18 18:59 06:59 18:59 Intake Total 1900 / 1900 2820 / 2820 Output Total 875 / 875 Balance 1900 / 1900 1945 / 1945 Weight 87.4 kg Intake: IV 1000 / 1000 2100 / 2100 NS Inj 1,000 ML @ 100 mls/hr IV 1000 / 1000 2000 / 1999 .CONT .Q10H BECCA Rx#:[id number] Rocephin Inj 1,000 MG In NS Inj 100 / 100 100 ML @ 200 mls/hr IV.SIG Q24H BECCA Rx#:[id number] Oral 900 / 900 720 / 720 Output: Urine 875 / 875 Other: # Voids 10 Date of Last Bowel Movement 01/20/18 01/20/18 Narrative: General patient in no acute distress HEENT extraocular movements are intact, clear oropharyngeal mucosa, no JVD Cardiovascular S1-S2 audible Respiratory clear to auscultation bilaterally Abdomen soft, nontender, nondistended, normal bowel sounds, no suprapubic tenderness, no flank pain. Extremities no edema 2+ distal pulses in bilateral upper and lower extremities Neuro cranial nerves II through XII intact Results - Labs CBC & Chem 7: 01/21/18 04:45 01/21/18 04:45 Laboratory Results - last 24 hr 01/21/18 01/22/18 16:24 06:17 PT 16.1 H INR 1.6 Digoxin 0.6 L Microbiology 01/20/18 19:50 Blood - Peripheral Aerobic Blood Culture - Preliminary No growth in 2 days 01/20/18 19:50 Blood - Peripheral Anaerobic Blood Culture - Preliminary No growth in 2 days 01/20/18 19:55 Blood - Peripheral Aerobic Blood Culture - Preliminary No growth in 2 days 01/20/18 19:55 Blood - Peripheral Anaerobic Blood Culture - Preliminary No growth in 2 days 01/20/18 21:45 Clean Catch Urine Urine Culture - Final <10,000 cfu/mL gram negative rods - no further workup - Procedures None Assessment and Plan - Plan 72-year-old male with a history of coronary artery disease, status post aortic and mitral valve replacement on Coumadin, hypertension, hyperlipidemia, atrial fibrillation is brought to the emergency department by EMS for evaluation of weakness and UTI. Urinary tract infection Patient denies any symptoms of a UTI. He has been having difficulty with urinary stream prior to admission or hospital. We will start him on Flomax. Cultures are showing gram-negative rods and the patient was taking Bactrim prior to arrival to our emergency department for a urinary tract infection. Continue antibiotics. Hypertension Continue current medications. Norvasc will be started to the patient's medication regimen. His blood pressure medications will be adjusted as needed. CAD status post Aortic Valve replacement/Mitral Valve replacement INR is currently 1.6. Goal INR will be between 2.5 and 3.5. Continue Coumadin and Lovenox. We will follow-up in a.m. PT/INR. A. fib, chronic Continue Coumadin Continue beta-sameer DVT prophylaxis Coumadin
[2018-01-22] MEDS: amLODIPine 5 MG Tablet PO SCH (16:50)
[2018-01-22] MEDS ORDERED: Melatonin 5 MG Tablet PO PRN (22:00)
[2018-01-23] MEDS: Sod Chloride 0.9% Inj 1,000 ML IV.CONT SCH (00:58)
[2018-01-23 08:19] VITALS: BP 157/74; RESP 17; TEMP 98; O2SAT 98
--- NOTE | 2018-01-23 08:41 | P.DS ---
Date of admission: 01/20/18 23:29 Primary care physician: Merry Jensen Brief History from admission: 72-year-old male with a history of hypertension, hyperlipidemia, atrial fibrillation, status post aortic and mitral valve replacement anticoagulated on Coumadin is brought to the emergency department by EMS for evaluation of weakness and UTI. The patient states that he was diagnosed with a urinary tract infection 5 days ago and was Bactrim as prescribed. States that his symptoms have worsened. He complains of burning with urination, painful urination, suprapubic pain and frequency. He was also found to have a subtherapeutic INR. He states today he just felt week, denied any fever or chills. DS: Medications - Discharge Medications Prescriptions: amlodipine [Norvasc] 5 mg PO DAILY #30 tab ciprofloxacin HCl 500 mg PO Q12HR 5 Days #10 tab enoxaparin [Lovenox] 90 mg SUBCUT Q12HR #4 mg enoxaparin [Lovenox] 90 mg SUBCUT Q12HR 3 Days #6 ml DS: Summary Hospital Course: This patient is a 72-year-old male with a history of hypertension, hyperlipidemia, atrial fibrillation, aortic valve and mitral valve replacement anticoagulated on Coumadin is brought to the emergency department by EMS for evaluation of weakness and UTI. The patient states that he was diagnosed with a urinary tract infection 5 days ago and was Bactrim as prescribed. States that his symptoms have worsened. He complained of burning with urination, painful urination, suprapubic pain and frequency. 1. Complicated urinary tract infection failed outpatient antibiotics The patient was found to have an elevated WBC count, and had symptoms consistent with a urinary tract infection. He was on Bactrim for a few days however did not have any improvement in his symptoms. Urine culture grew gram- negative rods. He was started on IV antibiotics as well as IV fluids on admission. After a couple of days of IV antibiotics the patient's symptoms improved. He will be discharged home today with 5 days of ciprofloxacin. He is urinating without any difficulties at this time. If the patient starts to have difficulty with urination he should be evaluated for an enlarged prostate. If his symptoms continue he may benefit from being on Flomax. His symptoms have resolved and he will be discharged today. 2. Atrial fibrillation with mitral and aortic valve replacement As per the patient he has had a history of mitral valve and aortic valve replacement. His INR was subtherapeutic on arrival to our emergency department. He was started on Lovenox and Coumadin. INR from today is 1.7. He will be discharged on Lovenox and Coumadin. Once the patient's INR goal of 2.5-3.5 is reached he should stop Lovenox and continue Coumadin. The risks and benefits of being on anticoagulation have been discussed with the patient and he agrees to continue anticoagulation. He has a scheduled appointment for tomorrow with his primary care physician Dr. Jensen and an INR should be checked during that visit. His Coumadin dose should be adjusted to meet the goal INR. These instructions were given to the patient in Bur[place] and in [place] by me and the patient understands the current plan in place. - Time Spent with Patient Total time spent providing and/or coordinating discharge services: Greater than 30 minutes Exam Vital signs: Vital Signs 01/22/18 12:00 01/22/18 16:00 01/22/18 20:00 Temperature 97.8 F 97.9 F 98.1 F Pulse Rate 60 59 L 61 Respiratory Rate 18 18 18 Blood Pressure 151/67 H 148/72 H 152/72 H Pulse Oximetry 97 97 96 01/22/18 23:27 01/23/18 00:00 01/23/18 03:03 Temperature 98.4 F 98.3 F Pulse Rate 73 67 72 Respiratory Rate 18 20 Blood Pressure 163/79 H 157/58 H Pulse Oximetry 96 97 01/23/18 08:00 Temperature 98.0 F Pulse Rate 71 Respiratory Rate 17 Blood Pressure 157/74 H Pulse Oximetry 98 Intake & Output 01/22/18 01/23/18 01/23/18 18:59 06:59 18:59 Intake Total 2100 / 2100 100 / 100 Balance 2100 / 2100 100 / 100 Weight 86.9 kg Intake: IV 900 / 900 100 / 100 NS Inj 1,000 ML @ 100 mls/hr IV 900 / 900 .CONT .Q10H BECCA Rx#:[id number] Rocephin Inj 1,000 MG In NS Inj 100 / 100 100 ML @ 200 mls/hr IV.SIG Q24H BECCA Rx#:[id number] Oral 1200 / 1200 Other: # Voids 4 1 Date of Last Bowel Movement 01/22/18 Results Procedures completed during hospitalization: None Labs on day of discharge: Preliminary micro results at discharge 01/20/18 19:50 Aerobic Blood Culture - Preliminary Blood - Peripheral No growth in 2 days Anaerobic Blood Culture - Preliminary No growth in 2 days 01/20/18 19:55 Aerobic Blood Culture - Preliminary Blood - Peripheral No growth in 2 days Anaerobic Blood Culture - Preliminary No growth in 2 days - Impressions ITS Impressions Chest X-Ray 01/20/18 19:34 CONCLUSION: Cardiomegaly without radiographic evidence of congestive failure. No infiltrates seen. Discharge Plan - Discharge Disposition Patient Disposition: Discharge Home - Discharge Condition Condition: Stable - Discharge Order Discharge Orders: Discharge Order (Routine); Ordered 01/23/18 Ordered By: Zulema Garcia - Physicians Team Primary Care Provider: Merry Jensen Attending Provider: Zulema Garcia
[2018-01-23] MEDS: Lisinopril 20 MG Tablet PO SCH (09:00)
[2018-01-23] MEDS: Furosemide 20 MG Tablet PO SCH (09:00)
[2018-01-23] MEDS: Digoxin 125 MCG Tablet PO SCH (09:00)
[2018-01-23] MEDS: Senna/Docusate Sodium 8.6/50 MG Tablet PO SCH (09:00)
[2018-01-23] MEDS: Enoxaparin Inj 100 MG/ML Syringe SQ SCH (09:00)
[2018-01-23] MEDS: amLODIPine 5 MG Tablet PO SCH (09:00)
[2018-01-23 09:59] VITALS: PULSE 69
[2018-01-23 10:30] LABS: INR 1.7 Ratio; Prothrombin Time 16.7 sec (9.8-11.6)
[2018-01-23] MEDS ORDERED: Amoxicillin/Clavulanate 500/125 MG Tablet PO SCH (14:00)
[2018-01-23] MEDS ORDERED: Enoxaparin Inj 100 MG/ML Syringe SQ SCH (21:00)
[2018-01-23] MEDS ORDERED: Ciprofloxacin 500 MG Tablet PO SCH (21:00)
== END 2018-01-23 12:01 | disposition home or self-care (01) ==
LOC: NEPE 19:00 → NEDA 23:29 → N07 01-21 00:44
PROVIDERS: ADMIT Hospitalist; ATTEND Hospitalist